=== PATIENT | female | born 2000 | race Caucasian/White ===

== ENCOUNTER 2021-07-19 02:06 | Emergency (ER) | payer BC ==
[~2021-07-19] VITALS: Ht 170.2 cm; Wt 61.4 kg
[2021-07-19 02:17] VITALS: TEMP 97.9
[2021-07-19 02:35] LABS: BASO # 0.1 K/mm3 (0.0-0.2); BASO % 0.8 % (0.0-2.0); EOS # 0.2 K/mm3 (0.0-0.7); EOS % 1.6 % (0-4.0); GRAN # 3.7 K/mm3 (1.4-6.5); HEMATOCRIT 38.8 % (35.0-45.0); HEMOGLOBIN 13.5 g/dl (12.0-15.0); LYMPH # 4.9 K/mm3 (1.2-3.4); LYMPH % 52.4 % (20.0-51.0); MEAN CELL VOLUME 88 fl (80.0-95.0); MEAN CORPUSCULAR HEMOGLOBIN 31 pg (26.0-32.0); MEAN CORPUSCULAR HGB CONC 35 g/dl (33.0-37.0); MEAN PLATELET VOLUME 10.4 fl (7.4-10.4); MONO # 0.5 K/mm3 (0.1-0.6); PLATELET COUNT 221 K/mm3 (130-400); RED BLOOD COUNT 4.41 M/mm3 (4.10-5.30); REDCELL DISTRIBUTION WIDTH-CV 11.9 % (11.5-14.5)
[2021-07-19 02:52] LABS: ALBUMIN 4.7 gm/dL (3.5-5.0); BILIRUBIN,TOTAL 0.3 mg/dL (0.2-1.2); CALCIUM 8.6 mg/dL (8.4-10.2); CREATININE, serum 0.91 mg/dL (0.57-1.11); POTASSIUM 3.3 mmol/L (3.5-4.5); TOTAL PROTEIN 7.9 gm/dL (6.2-8.1)
[2021-07-19 08:56] LABS: COLLECTION METHOD CLEAN CATCH
[2021-07-19 08:58] VITALS: BP 119/73; PULSE 98
[2021-07-19 09:02] LABS: PH 7 (5-8); SQUAMOUS EPITHELIAL 0-2 /hpf; URINE APPEARANCE Clear; URINE BACTERIA None Seen /hpf; URINE BILIRUBIN Negative (NEGATIVE); URINE BLOOD Negative (NEGATIVE); URINE COLOR Straw; URINE GLUCOSE Negative (NEGATIVE); URINE KETONE Negative (NEGATIVE); URINE LEUKOCYTE ESTERASE Negative (NEGATIVE); URINE NITRATE Negative (NEGATIVE); URINE PROTEIN(semi-quant) Negative (NEGATIVE); URINE RBC None Seen /hpf; URINE UROBILINOGEN Negative (NEGATIVE)
[2021-07-19 09:13] LABS: TRICYCLIC ANTIDEPRESS URINE NEGATIVE
== END 2021-07-19 09:07 | disposition home or self-care (01) ==
LOC: COL.ER 02:06
PROVIDERS: Emergency Medicine
DX: F10.129 Alcohol abuse with intoxication, unspecified (principal); Y90.8 Blood alcohol level of 240 mg/100 ml or more
CPT/HCPCS: J2405; J7120